=== PATIENT | male | born 1995 | race Caucasian/White ===

== ENCOUNTER 2018-03-13 09:23 | Emergency (ER) | payer OTHER ==
[~2018-03-13] VITALS: Ht 165.1 cm; Wt 67.6 kg
[2018-03-13 09:34] VITALS: Ht 165.1 cm; Wt 67.6 kg
[2018-03-13 11:30] VITALS: BP 130/77
== END 2018-03-13 11:30 | disposition home or self-care (01) ==
LOC: ED 09:23
DX: S61.431A Puncture wound without foreign body of right hand, initial encounter (principal); S60.221A Contusion of right hand, initial encounter; J45.909 Unspecified asthma, uncomplicated; W18.39XA Other fall on same level, initial encounter; Y93.89 Activity, other specified; Y92.89 Other specified places as the place of occurrence of the external cause; Y99.8 Other external cause status
CPT/HCPCS: 90714; Q0092